=== PATIENT | female | born 1990 | race Caucasian/White ===

== ENCOUNTER 2016-05-04 21:06 | Emergency (ER) | payer OTHER ==
[2016-05-04] MEDS ORDERED: NORMAL SALINE 1,000 ML IV ONE (22:57)
--- OUTSIDE RECORDS SUMMARY | 2016-05-04 22:59 | XMS REPORT | Continuity of Care Document ---
:1990 Author Organization [facility] ([facility]) Address [place] [address] Phone [phone] Care Team Providers Name Role Phone Provider, No-Primary Care Primary Care Provider Unavailable Source Comments This disclosure is being made pursuant to the Care Everywhere program, applicable federal and state laws, and may not contain all informaitonavailable regarding this patient.[facility] ([facility]) Active Allergies and Adverse Reactions No Known Allergies Current Medications No known medications Active Problems Problem Noted Date Intentional self-harm by sharp object 08/31/2011 Depression 08/31/2011 Immunizations Name Dates Previously Given Next Due Tdap 08/31/2011 Social History Tobacco Use Types Packs/Day Years Used Date Current Every Day Smoker Cigarettes 1 Tobacco Cessation:Ready to Quit: No; Counseling Given: Yes Comments: Alcohol Use Drinks/Week oz/Week Comments No Last Filed Vital Signs Vital Sign Reading Time Taken Blood Pressure 148/84 07/10/2012 9:01 AM CDT Pulse 79 07/10/2012 9:01 AM CDT Temperature 35.9 C (96.6 F) 07/10/2012 9:01 AM CDT Respiratory Rate 16 07/10/2012 9:01 AM CDT Height - - Weight - - Body Mass Index - - Oxygen Saturation 99% 07/10/2012 9:01 AM CDT Plan of Care Health Maintenance Due Date Last Done Comments Hepatitis B Vaccine (1 of 3 - Primary Series) 1990 HPV Vaccine (1 of 3 - Female/Unknown 3 Dose Series) 2001 Cervical Cancer Screening 2008 Lipid Disorder Screening 2008 MMR Vaccine 2008 Varicella Vaccine (1 of 2 - Adult - No Evidence of 2008 Immunity) Pneumococcal Vaccine (1 of 1 - PPSV23) 2009 Influenza Vaccine: Seasonal (#1) 10/18/2015 Td Vaccine 08/30/2021 08/31/2011 Tdap Vaccine Completed 08/31/2011 Results from Last 3 Months Not on file
--- OUTSIDE RECORDS SUMMARY | 2016-05-04 22:59 | XMS REPORT | Continuity of Care Document ---
:1990 Demographics Phone Unavailable Preferred Language Unknown Marital Status Unknown Uatsdin Affiliation Unknown Race Unknown Ethnic Group Unknown Author Organization [email or web address] Address Unavailable [address] [address] Care Team Providers Name Role Phone Unavailable Primary Care Provider Unavailable Source Comments This disclosure is being made pursuant to the Zane Prep program and maynot contain all information available regarding this patient.[email or web address] Active Allergies and Adverse Reactions Not on File Current Medications Be aware that medications may not be up to date as of this document. Alwaysverify current medications with the patient. Not on file Active Problems Not on file Social History Tobacco Use Types Packs/Day Years Used Date Never Assessed Plan of Care Health Maintenance Due Date Last Done Comments HPV Vaccine ([id number]) (1 of 3 - Female/Unknown 3 Dose 2001 Series) Chlamydia Screening 2006 Retired-Pertussis Vaccine Adult 2009 Retired-Tetanus Vaccine Adult 2009 Pap Smear 01/01/2012 Retired-INFLUENZA VACCINE 11/17/2014 Results from Last 3 Months Not on file
[2016-05-05] MEDS ORDERED: CODEINE PHOSPHATE/GUAIFENESIN 5 ML UDC PO ONE ×3 (00:19→01:46)
--- NOTE | 2016-05-05 00:20 | ERNOTE ---
Medical Problem HPI - General Chief Complaint: Fever Time Seen by Provider: 05/04/16 22:49 Source: patient Exam Limitations: no limitations - Immun/Allergies/Home Medications Immunizations: IMMUNIZATION HX Immunizations Up to Date No History of Influenza Vaccine No Hx Pneumococcal Vaccination No Allergies/Adverse Reactions: Allergies No Known Allergies Allergy (Unverified 01/21/16 13:58) Home Medications: HOME MEDICATIONS Pnv95/Ferrous Fumarate/FA [ Caplet] 1 cap PO DAILY 01/21/16 [Last Taken Unknown] Albuterol Sulfate [Proventil Hfa] 6.7 gm IH Q6H PRN 05/04/16 [Last Taken Unknown ] Azithromycin [Zithromax] 250 mg PO DAILY 05/04/16 [Last Taken Unknown] Ondansetron HCl [Zofran] 1 - 2 mg PO Q8H PRN 05/04/16 [Last Taken Unknown] Guaifenesin/Codeine Phosphate [Guaifenesin-Codeine Syrup] 10 ml PO QID PRN #100 ml 05/05/16 [Last Taken Unknown] Oseltamivir Phosphate [Tamiflu] 75 mg PO DAILY #10 cap 05/05/16 [Last Taken Unknown] - History of Present History Narrative: has had cough for 3-4 days seen in a walk in clinic and given azithromycin, has taken one dose. Reports she was tested for strep and influenza and was negative for both Timing: getting worse Severity: moderate Review of Systems - Review of Systems Constitutional: Present: See HPI, recent illness, fatigue EYE: Present: no symptoms reported ENT: Present: nose congestion, sore throat Respiratory: Present: cough Cardiology: Present: no symptoms reported Gastrointestinal/Abdominal: Present: no symptoms reported Genitourinary: Present: no symptoms reported Musculoskeletal: Present: muscle pain - back and abdomen from coughing Skin: Absent: rash Neurological: Present: no symptoms reported Endocrine: Present: no symptoms reported Hematologic/Lymphatic: Present: no symptoms reported Psych: Present: no symptoms reported - Patient's Past Medical History Patient History - Medical: No pertinent hx Patient History - Cardiac/Respiratory: Asthma Patient History - Cancer: No Hx of Cancer Patient History - Surgical Procedures: Patient History - Other: None LMP (females 10-50): - Social History Living Situations: home Abuse History: No History of abuse Psych History: No pertinent hx Smoking Status: Current every day smoker Patient requests Smoking Cessation Consult: No Initiate information on Smoking Cessation: No Alcohol Use: none Drug Use: none - Immunizations Immunizations Up to Date: No Hx Pneumococcal Vaccination: No History of Influenza Vaccine: No Physical Exam - Physical Exam General Appearance: Present: wd/wn, alert, mild distress Eye Exam: Normal inspection: bilateral, PERRL: bilateral Ears, Nose, Throat: Present: nasal congestion - with some mucoid drainage Neck: Present: normal inspection, nontender Respiratory: Present: no respiratory distress, normal breath sounds, no accessory muscle use, chest nontender, lungs clear - frequent coughing Cardiovascular/Chest: Present: regular rate, rhythm, no murmur, normal peripheral pulses Gastrointestinal/Abdominal: Present: normal bowel sounds, nontender, nondistended, soft Back Exam: Present: normal range of motion, no vertebral tenderness Extremity Exam: Present: pedal edema Neurological Exam: Present: alert, oriented, normal mood/affect, no motor/ sensory deficits Skin Exam: Present: normal color Lymphatic Exam: Present: no adenopathy ED Progress - Results and Orders Patient's Lab Results:: I have reviewed the patient's lab results. Results and Orders: Laboratory Tests 05/04/16 23:30 Chlamy pneumoniae PCR Not detected Adenovirus (PCR) Not detected B. pertussis DNA (PCR) Not detected Coronavirus OC43 (PCR) Not detected Coronavirus HKU1 (PCR) Not detected Coronavirus 229E (PCR) Not detected Coronavirus NL63 (PCR) Not detected Human Metapneumovirus Not detected Influenza A (H1) PCR Not detected Influenza A (H1N1) PCR Not detected Influenza A (H3) PCR Not detected Influenza B (RT-PCR) Detected H M. pneumoniae (PCR) Not detected Parainfluenza 1 (PCR) Not detected Parainfluenza 2 (PCR) Not detected Parainfluenza 3 (PCR) Not detected Parainfluenza 4 (PCR) Not detected RSV (PCR) Not detected Rhinovirus (PCR) Not detected - Vital Signs Patient's Vital Signs:: I have reviewed the patient's vital signs. Vital Signs: Vital Signs 05/04/16 21:10 Temperature 38.3 C H Pulse Rate 102 H Respiratory 20 Rate Blood Pressure 127/66 O2 Sat by Pulse 98 Oximetry - Progress/Reassessment Chief Complaint: Fever Departure - Departure Clinical Impression: Influenza B Disposition: Home Follow Up Needed Condition: Fair Instructions: Influenza, Adult, [id number] Referrals: Verito Carrion DO [Primary Care Provider] - Prescriptions: Guaifenesin/Codeine Phosphate [Guaifenesin-Codeine Syrup] 10 ml PO QID PRN #100 ml PRN Reason: Cough Oseltamivir Phosphate [Tamiflu] 75 mg PO DAILY #10 cap
[2016-05-05] MEDS ORDERED: CODEINE PHOSPHATE/GUAIFENESIN 5 ML UDC ONE ×2 (00:21→01:48)
[2016-05-05 00:30] VITALS: BP 120/76
[2016-05-05] MEDS ORDERED: OSELTAMIVIR PHOSPHATE 75 MG CAPSULE PO ONE ×2 (01:48→01:55)
== END 2016-05-05 02:05 | disposition home or self-care (01) ==
LOC: ER 21:06
DX: J10.1 Influenza due to other identified influenza virus with other respiratory manifestations (principal); Z72.0 Tobacco use; Z33.1 Pregnant state, incidental

== ENCOUNTER 2016-08-09 05:13 | Inpatient (IN) | payer OTHER ==
--- OUTSIDE RECORDS SUMMARY | 2016-08-09 05:19 | XMS REPORT | Continuity of Care Document ---
:1990 Author Organization [facility] ([facility]) Address [place] [address] Phone [phone] Care Team Providers Name Role Phone Provider, No-Primary Care Primary Care Provider Unavailable Source Comments This disclosure is being made pursuant to the Care Everywhere program, applicable federal and state laws, and may not contain all informaitonavailable regarding this patient.[facility] ([facility]) Active Allergies and Adverse Reactions No Known [...]
--- OUTSIDE RECORDS SUMMARY | 2016-08-09 05:19 | XMS REPORT | Continuity of Care Document ---
:1990 Demographics Phone Unavailable Preferred Language Unknown Marital Status Unknown Hindu Affiliation Unknown Race Unknown Ethnic Group Unknown Author Organization [facility] Address Unavailable [address] [address] Care Team Providers Name Role Phone Unavailable Primary Care Provider Unavailable Source Comments This disclosure is being made pursuant to the NEXAGE program and maynot contain all information available regarding this patient.[facility] Active Allergies and Adverse Reactions Not on [...]
[2016-08-09] MEDS ORDERED: DEXTROSE 5%-LACTATED RINGERS 1,000 ML IV PRN (05:20)
[2016-08-09] MEDS ORDERED: ceFAZolin SODIUM/DEXTROSE,ISO 2 GM/50 ML BAG IV ONE (05:20)
[2016-08-09] MEDS ORDERED: OXYTOCIN 20 UNITS in RINGERS SOLUTION,LACTATED 1,000 ML IV ONE ×2 (05:20→09:40)
[2016-08-09] MEDS ORDERED: RINGERS SOLUTION,LACTATED 1,000 ML IV PRN (05:20)
[2016-08-09 06:06] LABS: Cocaine Ur Negative (NEGATIVE); Urine Barbiturate Negative (NEGATIVE); Urine Benzodiazepines Negative (NEGATIVE); Urine Opiates Negative (NEGATIVE); Urine PCP Negative (NEGATIVE); Urine THC Negative (NEGATIVE)
[2016-08-09] MEDS ORDERED: ceFAZolin SODIUM/DEXTROSE,ISO 2 GM/50 ML BAG IV PRN (07:31)
[2016-08-09] MEDS ORDERED: RINGERS SOLUTION,LACTATED 1,000 ML IV ONE ×2 (07:45→08:00)
[2016-08-09] MEDS ORDERED: ceFAZolin SODIUM 1 GM VIAL IV ONE (08:00)
[2016-08-09] MEDS ORDERED: ONDANSETRON HCL/PF 2 MG/ML VIAL IV PRN (09:40)
[2016-08-09] MEDS ORDERED: BISACODYL 10 MG SUPP.RECT RC PRN (09:40)
[2016-08-09] MEDS ORDERED: SIMETHICONE 80 MG TAB.CHEW PO PRN (09:40)
[2016-08-09] MEDS ORDERED: SENNOSIDES 8.6 MG TABLET PO PRN (09:40)
[2016-08-09] MEDS ORDERED: oxyCODONE HCL/ACETAMINOPHEN 1 TAB TABLET PO PRN (09:40)
--- NOTE | 2016-08-09 09:47 | OR ---
Operative Report - Dictated Report Narrative: Indication: 25-year-old 2 para 1 at 39-2/7 weeks with prior section desires repeat section with bilateral salpingectomy for sterilization Pre Operative Diagnosis: 39-2/7 week intrauterine , prior section, desires permanent sterilization via bilateral salpingectomy Post Operative Diagnosis: Same. Procedure: Repeat low transverse section. Bilateral salpingectomy. Abdominal scar revision - 16cm Surgeon: Sean Nieto DO Medical Assistant Supervisor: OR staff Anesthesia: Spinal with duramorph, TAP block Estimated Blood Loss: 200 mL Urine Output: 200 mL clear urine Fluids Replacement: 2000 mL of crystalloid Drains: Crum to gravity Surgical Complications: None Specimens: Placenta to freezer Findings: Male in cephalic presentation born at 0829 on 08/09/2016 with Apgars 8 and 9, weighing 3476 g. Normal tubes and ovaries. Extremely thin lower uterine segment with a 1 cm window in the right corner. Technique: The patient was taken to the operating room and placed in dorsal supine position with a left lateral tilt. After adequate spinal anesthesia, crum catheter inserted, SCDs placed, and 2 g of Ancef given preoperatively, the previous scar was excised in an elliptical fashion and the abdominal cavity was entered using sharp and blunt dissection. Two rolled laps were placed in the pericolic gutters on either side of the uterus. The lower uterine segment was extremely thin and had a 1 cm window in the right corner. A transverse incision was made in the lower uterine segment and extended laterally and upwardly with digital traction. Clear fluid was noted upon amniotomy. The infant was delivered easily. The cord was clamped and cut and was handed off to awaiting peditrician. The placenta was allowed to deliver spontaneously. The uterus was cleared of clot and debris. Uterine incision was closed with 0 Vicryl using a running stitch. A second imbricating layer was placed. Excellent hemostasis was noted. The left fallopian tube was identified, followed out to the fimbriated end, and coagulated with the Bovie along the mesosalpinx and across the tube approximately 2 cm from the cornual region. The exact same was done on the patient's right side. Excellent hemostasis was noted. The rolled laps were removed from the abdominal cavitiy. The peritoneum was closed with a running 3-0 Monocryl. The same suture was used to approximate the rectus and pyramidalis muscles. The fascia was closed with a running 0 Vicryl. The subcutaneous layer was closed in 2 layers with a running 3-0 Monocryl. The same suture was used to approximate the subdermal layer. The skin was closed with a running 4-0 Monocryl and Dermabond. Sponge, lap, needle, and instrument count were correct x 2. Disposition: To post anesthesia care unit in good condition History for MU Definition: * The number of deliveries resulting in a live the patient experienced prior to current hospitalization * The previous delivery of live twins or any live multiple gestation is considered one live event. *If primagravida or nulliparous is documented select zero for the number of previous live births. Live Events: 1
[2016-08-09] MEDS ORDERED: diphenhydrAMINE HCL 50 MG/ML VIAL IV PRN (09:54)
[2016-08-09] MEDS ORDERED: NALOXONE HCL 1 MG/1 ML SYRG IV PRN ×2 (09:54)
[2016-08-09] MEDS ORDERED: PROMETHAZINE HCL 25 MG in DEXTROSE 5 % IN WATER 50 ML IV PRN ×2 (12:36)
[2016-08-09] MEDS ORDERED: RHO(D) IMMUNE GLOBULIN 300 MCG DISP.SYRIN IM ONE (16:30)
[2016-08-09] MEDS: ENOXAPARIN SODIUM 40 MG/0.4 ML SYRG SC SCH (17:31)
[2016-08-09] MEDS: DOCUSATE SODIUM 100 MG CAPSULE PO SCH (21:28)
[2016-08-10] MEDS: IBUPROFEN 800 MG TABLET PO PRN ×3 (06:30→22:07)
[2016-08-10] MEDS: oxyCODONE HCL/ACETAMINOPHEN 1 TAB TABLET PO PRN ×3 (06:30→22:08)
[2016-08-10] MEDS: DOCUSATE SODIUM 100 MG CAPSULE PO SCH ×2 (09:33→20:59)
--- NOTE | 2016-08-10 16:54 | PN ---
Subjective - Date and Time Seen Date: 08/10/16 Time: 16:52 Objective - Vitals Vitals: Last Vital Signs Temp 36.8 C 08/10/16 12:00 Pulse 84 08/10/16 12:00 Resp 20 08/10/16 12:00 BP 127/77 08/10/16 12:00 Pulse Ox 96 08/10/16 12:00 Patient denies complaints. Tolerating regular diet. Ambulating without difficulty. Pain well controlled. Lochia wnl. Abdomen - soft, appropriately tender Incision - clean, dry, intact, mild erythema of the pannus below the incision. Uterus - firm, at umbilicus -1 No calf tenderness Impression: Post op day #1 s/p repeat section. Bilateral salpingectomy. Abdominal scar revision. Morbid obesity Plan: Continue routine post-operative/ care Cauti Physician Documentation - Urinary Catheter Management Urethral ([place]) Date of Insertion: 08/09/16 Time of Insertion: 07:00 Date of Removal: 08/10/16 Time of Removal: 03:15
[2016-08-10] MEDS: ENOXAPARIN SODIUM 40 MG/0.4 ML SYRG SC SCH (17:35)
--- NOTE | 2016-08-10 21:09 | PN ---
Subjective - Date and Time Seen Date: 08/10/16 Time: 21:07 Subjective Narrative: Patient denies complications related to Astramorph spinal and bilateral ultrasound-guided tap blocks. Patient's nausea and vomiting has resolved. Patient's pain is well controlled Objective - Review of Systems Generalized/Overall Review: Reports: No Symptoms Reported - Vitals Vitals: Last Vital Signs Temp 36.7 C 08/10/16 19:29 Pulse 93 08/10/16 19:29 Resp 20 08/10/16 19:29 BP 126/69 08/10/16 19:29 Pulse Ox 98 08/10/16 16:45 - Exam Constitutional: Present: Alert, Oriented x3, Cooperative, No distress Extremity: Present: normal range of motion Cauti Physician Documentation - Urinary Catheter Management Urethral ([place]) Date of Insertion: 08/09/16 Time of Insertion: 07:00 Date of Removal: 08/10/16 Time of Removal: 03:15 Assessment/Plan Plan Narrative: Continue current pain medications as prescribed.
[2016-08-11] MEDS: oxyCODONE HCL/ACETAMINOPHEN 1 TAB TABLET PO PRN ×2 (07:30→17:49)
[2016-08-11] MEDS: IBUPROFEN 800 MG TABLET PO PRN ×2 (07:30→15:39)
--- NOTE | 2016-08-11 08:59 | PN ---
Subjective - Date and Time Seen Date: 08/11/16 Subjective Narrative: Denies any problems. Pain controlled. Ambulating, voiding, taking regular diet. Lochia small. . Objective - Review of Systems Generalized/Overall Review: Reports: No Symptoms Reported EENTM: Reports: No Symptoms Reported Respiratory: Reports: No Symptoms Reported Cardiac: Reports: No Symptoms Reported Abdominal: Reports: Abdominal Pain - mild, controlled with analgesics Genitourinary Symptoms: Reports: No Symptoms Reported Musculoskeletal Complaints: Reports: No Symptoms Reported Neurological: Reports: No Symptoms Reported Skin: Reports: No Symptoms Reported Endocrine: Reports: No Symptoms Reported - Vitals Vitals: Last Vital Signs Temp 36.6 C 08/11/16 07:45 Pulse 90 08/11/16 07:45 Resp 20 08/11/16 07:45 BP 150/74 08/11/16 07:45 Pulse Ox 98 08/11/16 07:45 - Exam Constitutional: Present: Alert, Oriented x3, Cooperative Respiratory: Present: lungs clear Abdomen: Present: Normal bowel sounds, soft, nondistended - Incision intact with no drainage. There is some edema and bruising of pannus probably related to dissection at time of surgery Cauti Physician Documentation - Urinary Catheter Management Urethral ([place]) Urethral Indwelling: No Date of Insertion: 08/09/16 Time of Insertion: 07:00 Date of Removal: 08/10/16 Time of Removal: 03:15 Assessment/Plan Plan Narrative: Stable POD#2 s/p repeat LCTC/S with BTL and incision revision. Monitor incision. Continue present care. - Problems/Diagnosis (1) Status post repeat low transverse section Problem: Acute
[2016-08-11] MEDS: DOCUSATE SODIUM 100 MG CAPSULE PO SCH ×2 (11:20→20:37)
[2016-08-11] MEDS: ENOXAPARIN SODIUM 40 MG/0.4 ML SYRG SC SCH (17:49)
[2016-08-12] MEDS: DOCUSATE SODIUM 100 MG CAPSULE PO SCH (08:20)
[2016-08-12 09:31] VITALS: BP 129/89
[2016-08-12] MEDS ORDERED: ALBUTEROL SULFATE IH PRN (10:30)
--- NOTE | 2016-08-12 10:30 | DS ---
(1) Status post repeat low transverse section Problem: Acute Description of Stay: Patient was admitted and taken to surgery on 08/09/16 at which time a repeat low cervical transverse section with bilateral salpingectomy for sterilization as well as scar revision was performed under spinal anesthesia by Dr. Nieto with delivery of a 3476 gm viable male with apgars of 8 and 9. The patient has a quite large pannus with original incision transverse above the pannus. Dr. Nieto performed quite a bit of dissection and scar revision. There was edema and bruising discoloration of the skin below the incision since POD#1. Some mild erythema has developed above the incision but no drainage. I will discharge patient on Augmentin and have her f/u next week in office. She has remained afebrile. She has been advanced on her diet and activity and lochia is small. She is . Procedures Performed: see notes below List Procedures: Repeat low cervical transverse section, bilateral salpingectomy, revision of scar/prior incision, spinal anesthesia Results and Findings: viable 3476gm male . Discharge Disposition: Home self care Disposition: Home self-care Condition: Fair Discharge Activity: No Lifting Discharge Diet: General/regular food - f/u nest week with Dr. Nieto for incision check. Problem Oriented Discharge Instructions to Patient/Family: Care After Delivery Additional Patient Instructions (free text): Your appointment is Daniel appointment is Drink plenty of fluids, eat lots of fruit and vegetables and lean meat. Rest when your baby rest. *Always place Stuart on his back and in his own bed when sleeping* Stuart blood type is A+, his bilirubin level (TcB) 8.6 at 69 hours old. She weighed 7 lb 2.6 oz at discharge. Stuart passed his Hearing and CHD screen. Thank you for choosing [facility]. We hope we have exceeded your expectations for you hospital stay. If you have any concerns or questions please do not hesitate to call. [facility] [phone], [facility] . Congratulations on your new addition to your family! Prescriptions (Any new or edited meds): Amox Tr/Potassium Clavulanate [Augmentin 875-125 Tablet] 875 mg PO Q12H #20 tab Ibuprofen [Motrin] 200 - 800 mg PO Q6H PRN #100 tab PRN Reason: Pain oxyCODONE HCL/ACETAMINOPHEN [Percocet 5 MG/325 MG] 1 tab PO Q4H PRN #20 tablet PRN Reason: Moderate Pain Complete Home Medications List: Complete Home Medication List: Pnv95/Iron Fum/Folic Acid [ Caplet] 1 cap PO DAILY 01/21/16 Albuterol Sulfate [Proventil Hfa] 6.7 gm IH Q6H PRN 05/04/16 Ibuprofen [Motrin] 200 - 800 mg PO Q6H PRN #100 tab 08/10/16 oxyCODONE HCL/ACETAMINOPHEN [Percocet 5 MG/325 MG] 1 tab PO Q4H PRN #20 tablet 08/10/16 Amox Tr/Potassium Clavulanate [Augmentin 875-125 Tablet] 875 mg PO Q12H #20 tab 08/12/16
[2016-08-13] MEDS ORDERED: IRON FUM PO SCH (09:00)
[2016-08-13] MEDS ORDERED: PNV95 PO SCH (09:00)
[2016-08-13] MEDS ORDERED: FOLIC ACID PO SCH (09:00)
== END 2016-08-12 12:30 | disposition home or self-care (01) | DRG 765 ==
LOC: MS 05:13
PROVIDERS: ADMIT Obstetrics & Gynecology; ATTEND Obstetrics & Gynecology
PROC: 0U570ZZ Destruction of Bilateral Fallopian Tubes, Open Approach (ICD-10-PCS; 2016-08-09)
PROC: 4A1HXCZ Monitoring of Products of Conception, Cardiac Rate, External Approach (ICD-10-PCS; 2016-08-09)
PROC: 10D00Z1 Extraction of Products of Conception, Low, Open Approach (ICD-10-PCS; principal; 2016-08-09 07:45)
DX: O99.824 Streptococcus B carrier state complicating childbirth (principal); Z68.42 Body mass index [BMI] 45.0-49.9, adult; O34.211 Maternal care for low transverse scar from previous cesarean delivery; O99.214 Obesity complicating childbirth; E66.01 Morbid (severe) obesity due to excess calories; O99.334 Smoking (tobacco) complicating childbirth; Z3A.39 39 weeks gestation of pregnancy; Z37.0 Single live birth; Z30.2 Encounter for sterilization
CPT/HCPCS: 58611; 59025; 59510; 80307; 85460; 88302; J2790